=== PATIENT | male | born 1950 | race Caucasian/White ===

== ENCOUNTER 2016-11-02 11:51 | Emergency (ER) | payer MEDICARE ==
[2016-05-14 17:58] VITALS: BMI 23.2
[~2016-11-02 11:51] MED LIST: ASPIRIN325 MG PO; COREG 3.1253.125 MG PO; CRESTOR40 MG PO; LISINOPRIL10 MG PO; LOPRESSOR25 MG PO; NICODERM C1 PATCH .1 TRANSDERM; OMEGA 3 FISH OI1 CAP PO; PLAVIX75 MG PO
[2016-11-02 12:57] LABS: BASOPHILS 0.1 % (0.0-2.0); EOSINOPHILS 0.9 % (0-7); HEMATOCRIT 45.1 % (42.0-54.0); HEMOGLOBIN 15.5 g/dL (13.5-17.5); IMMATURE GRANULOCYTES 0.4 % (0-5); LYMPHOCYTES 15.4 % (15-50); MCH 33.6 pg (26.0-34.0); MCHC 34.4 g/dL (31.0-37.0); MCV 97.8 fL (80.0-100.0); MEAN PLATELET VOLUME 9.1 fL (7.4-10.4); MONOCYTES 9.4 % (2-11); NEUTROPHILS 73.8 % (40-80); RBC 4.61 10x6/uL (4.20-6.10); RDW 12.9 % (11.5-14.5); WBC 13.9 10x3/uL (4.8-10.8)
[2016-11-02 13:02] LABS: PLATELET COUNT 204 10x3/uL (130-400)
[2016-11-02 13:15] LABS: ALBUMIN 3.4 g/dL (3.4-5.0); ALKALINE PHOSPHATASE 94 U/L (46-116); ALT (SGPT) 19 U/L (10-68); BILIRUBIN - TOTAL 0.75 mg/dL (0.2-1.3); CALC OSMOLALITY 273 mosm/kg (275-300); CARBON DIOXIDE 29.9 mmol/L (21.0-32.0); CHLORIDE - SERUM 103 mmol/L (98-107); CREATININE - SERUM 0.8 mg/dL (0.6-1.3); GLUCOSE 76 mg/dL (74-106); POTASSIUM - SERUM 4.5 mmol/L (3.5-5.1); SODIUM 138 mmol/L (136-145); UREA NITROGEN 10 mg/dL (7-18); eGFR NON AFRICAN AMERICAN > 90 mL/min (90-120)
[2016-11-02 13:20] LABS: CALCIUM 8.6 mg/dL (8.5-10.1)
== END 2016-11-02 16:40 | disposition home or self-care (01) ==
LOC: D.ER 11:51
PROVIDERS: Emergency Medicine
DX: J44.1 Chronic obstructive pulmonary disease with (acute) exacerbation (principal); J20.9 Acute bronchitis, unspecified; Z86.73 Personal history of transient ischemic attack (TIA), and cerebral infarction without residual deficits; F17.200 Nicotine dependence, unspecified, uncomplicated

== ENCOUNTER 2017-03-24 07:04 | Outpatient (CLI) | payer MEDICARE ==
[~2017-03-24] VITALS: Ht 177.8 cm; Wt 80.0 kg
--- NOTE | ~2017-03-24 | OP ---
PATIENT NAME: PIA JACKSON MEDICAL RECORD: [id number] :46 LOCATION:D.CAT ADMISSION DATE: SURGEON: MARK KENNEY M.D. DATE OF OPERATION: 03/24/2017 REFERRING PHYSICIAN: Mega Olmos MD. PROCEDURES PERFORMED: 1. RECOVERY ROOM RN and stenting to the right common iliac artery. 2. RECOVERY ROOM RN and stenting to the left common iliac artery. INDICATION: A 66-year-old gentleman who presents with lifestyle limiting claudication. 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 EQUIPMENT USED: A 7-Citizen [place] Brite Tip sheath, 0.035 guidewire, 8 mm x 29 mm Lesli stent, 8 mm x 29 mm Lesli stent. DESCRIPTION OF INTERVENTION: A 7-[place] sheath was inserted in retrograde fashion in the right common femoral artery. Next, a 7-[place] sheath was placed in the left common femoral artery. A UF catheter was advanced over the wire to the bifurcation. Injections then revealed 80% to 90% bilateral iliac stenosis at the origin. At this point, 7000 units of heparin was infused. A 7-[place]izen [place] Brite Tip sheath was then advanced to the junction of the right common iliac and external iliac artery. Next, a 7-[place] Brite Tip sheath was advanced to the junction of the left common iliac artery and left external iliac artery. At this point, an 8 mm x 29 mm Lesli stent was placed at the origin of the right common iliac artery. Next, an 8 mm x 29 mm Lesli stent was placed at the origin of left common iliac artery. Both stents were then simultaneously deployed at 10 atmospheres. Injection revealed both stents to be widely patent with 0% residual stenosis. There is no compromise of the bifurcation. At that point, both groins were closed with ExoSeal. IMPRESSION: Successful RECOVERY ROOM RN stenting to the right and left common iliac artery with 0% residual stenosis. TRANSINT:[id number] Voice Confirmation ID: [id number] DOCUMENT ID: [id number] MARK KENNEY M.D. CC: [id number] DICTATION DATE: 03/24/17 1012 PSYCHOLOGY PHYSICIAN: 03/24/172023 DEP CLI 03/24/17 [id number] [place] [address]
--- NOTE | ~2017-03-24 | HEMODYNAMI ---
PATIENT:PIA JACKSON MEDICAL RECORD: [id number] : 46 LOCATION:D.CAT ADMISSION DATE: 03/24/17 Generatedon:03/24/201710:18 Patient name: PIA JACKSON Patient #: [id number] SSN: [id number] : 1950 Date of study: 03/24/2017 Page: Of Hemodynamic Procedure Report Patient Data Patient Demographics Procedure consent was obtained First Name: PIA Gender: Male Last Name: MANUEL : 1950 Middle Initial: L Age: 66 year(s) Patient #: [id number] Race: SSN: [id number] Additional ID: [id number] Contact details [address]: [address] [place] [address] [place] State: [place] City: [place] Zip code: [address] Past Medical History Allergies: No known allergies Admission Admission Data Admission Date: 03/24/2017 Admission Time: 7:04 Lab Results Lab Result Date: 03/24/2017 Lab Result Time: 0:00 Biochemistry Name Units Result Min Max BUN mg/dl 20 --(----)*- 7 18 Creatinine mg/dl 1 --(--*-)-- 0.6 1.3 CBC Name Units Result Min Max Hemoglobin g/dl 15.9 --(--*-)-- 13.5 17.5 Procedure Procedure Types Cath Procedure Miscellaneous Procedures Moderate Sedation up to 15 minutes Peripheral vascular Intervention Angioplasty Angioplasty Iliac Initial Stent Stent-Arterial Inititial Procedure Description Procedure Date Procedure Date: 03/24/2017 Procedure Start Time: 9:26 Procedure End Time: 10:17 Procedure Staff Name Function Aneudy Fung MD Performing Physician Michelle Ricks RT Scrub Malik Harrison RN Nurse Veronica Gutierrez RN Nurse Leslee Garcia RT Monitor Miguel Herrera RN Nurse Procedure Data Cath Procedure Fluoroscopy Diagnostic fluoroscopy Total fluoroscopy Time: 5.4 time: 5.4 min min Contrast Material Contrast Material Type Amount (ml) Isovue 300 52 Entry Location Entry Primary Successful Side Size (Fr) Upsize 1 Upsize Entry Closu re Successful Closure Location (Fr) 2 (Fr) Remarks Jac e Remarks Femoral Right 6 Fr Short 6 Fr Exose al artery Mid-Length Femoral Left 6 Fr 6 Fr Short Exose al artery Mid-Length Estimated blood loss: 10 ml Diagnostic catheters Device Type Used For End Catheter Placement Cordis Tempo 5Fr UF Procedure catheter Procedure Complications No complications Procedure Medications Medication Administration Route Dosage Oxygen NC 2 l/min Lidocaine 2% added to field 20 Heparin Flush Bag added to field 2 bags (1000units/500ml NS) 0.9% NaCl I.V. 100 ml/hr Fentanyl I.V. 50 mcg Versed I.V. 1 mg Heparin Bolus I.V. 7000 units Versed I.V. 0.5 mg Fentanyl I.V. 25 mcg 0.9% NaCl I.V. bolus 500 ml Plavix P.O. 75 mg Hemodynamics Rest HGB: 15.9 (g/dl) Heart Rate: 93 (bpm) Snapshots Pre Cath Intra NCS Post Cath Vital Signs Time Heart Resp SPO2 NIBP (mmHg) Rhythm Pain Sedation Rate (ipm) (%) Status Level (bpm) 9:13:11 70 13 98 125/80(106) NSR 0 (11) 10(A) , No pain 9:17:19 76 15 100 120/73(102) NSR 0 (11) 10(A) , No pain 9:21:24 74 15 99 113/68(93) NSR 0 (11) 10(A) , No pain 9:25:30 69 14 99 101/62(83) NSR 0 (11) 9(A) , No pain 9:29:32 67 13 99 93/63(76) NSR 0 (11) 9(A) , No pain 9:33:34 64 12 99 84/55(67) NSR 0 (11) 9(A) , No pain 9:37:31 63 15 98 87/56(69) NSR 0 (11) 9(A) , No pain 9:41:31 65 14 98 82/55(70) NSR 0 (11) 9(A) , No pain 9:45:29 62 12 98 83/55(70) NSR 0 (11) 9(A) , No pain 9:49:28 66 14 98 72/46(55) NSR 0 (11) 9(A) , No pain 9:53:26 62 12 98 72/43(57) NSR 0 (11) 9(A) , No pain 9:57:23 65 12 98 77/43(56) NSR 0 (11) 9(A) , No pain 10:01:19 60 13 98 78/53(60) NSR 0 (11) 9(A) , No pain 10:05:16 60 12 98 80/48(64) NSR 0 (11) 10(A) , No pain 10:09:12 63 12 99 81/57(68) NSR 0 (11) 10(A) , No pain 10:13:10 61 12 99 80/54(65) NSR 0 (11) 10(A) , No pain 10:17:19 No Cuff NSR 0 (11) 10(A) , No pain Medications Time Medication Route Dose Verified Delivered Reason Notes Effectiveness by by 9:15:12 Oxygen NC 2 Veronica Veronica used for l/min Matt Matt procurement manager RN 9:15:26 Lidocaine 2% added 20ml Veronica Veronica used for to vial Matt Matt procedure field RN RN 9:15:40 Heparin Flush added 2 Veronica Veronica used for Bag to bags Matt Matt procedure (1000units/500ml field RN RN NS) 9:15:55 0.9% NaCl I.V. 100 Veronica Veronica used for ml/hr Matt Matt procurement manager RN 9:20:41 Fentanyl I.V. 50 Veronica Veronica for sedation mcg Matt Matt RN RN 9:20:49 Versed I.V. 1 mg Veronica Veronica for sedation Matt Matt RN RN 9:30:14 Versed I.V. 0.5 Veronica Veronica for sedation mg Matt Matt RN RN 9:30:21 Fentanyl I.V. 25 Veronica Veronica for sedation mcg Matt Matt RN RN 9:35:16 0.9% NaCl I.V. 500 Veronica Veronica Per physician bolus ml Matt Matt RN RN 9:46:43 Heparin Bolus I.V. 7000 Aneudy Veronica for verif ied units Marcos Gutierrez anticoagulation with dr. BIANCA fung 10:05:43 Plavix P.O. 75 mg Veronica Martin Per physician Matt Gutierrez RN certified anesthesiologist assistant Log Time Note 9:05:04 Diagnostic Cath Status : Elective 9:05:34 Miguel Herrera RN sent for patient. Start room use. 9:05:35 Time tracking: Regular hours 9:05:38 Plan of Care:Hemodynamics will remain stable., Cardiac rhythm will remain stable., Comfort level will be maintained., Respiratory function will remain adequate., Patient/ family verbilizes understanding of procedure., Procedure tolerated without complication., Recovers from procedure without complications.. 9:07:04 Patient received from Med II to CCL 1 Alert and oriented. Tansferred to table in Supine position. 9:07:07 Warm blankets applied, and tristin hugger turned on for patient comfort. 9:07:07 Correct patient and procedure confirmed by team. 9:07:09 Signed procedure consent form obtained from patient. 9:07:22 H&P Date Dictated: 03/10/2017 Within 30 days and on chart., H&P Addendum completed by physician on day of procedure. (MUST COMPLETE FOR ALL OUTPATIENTS). 9:07:25 Pre-procedure instructions explained to patient. 9:07:27 Family in waiting room. 9:07:29 Patient NPO since Midnight. 9:07:47 Patient allergic to No known allergies 9:07:51 Is the patient allergic to Iodine/contrast media? No. 9:08:05 Is patient on blood thinner?Yes 9:08:08 ACC The patient was administered the following blood thiners within the last 24 hours: ACCPlavix 9:08:41 Patient diabetic? No. 9:09:11 Procedure type changed to Cath procedure, Miscellaneous Procedures, Moderate Sedation up to 15 minutes, Peripheral vascular Intervention, Angioplasty, Angioplasty Iliac Initial, Stent, Stent-Arterial Inititial 9:10:09 Snore? Yes 9:10:11 Sleep apnea? No 9:10:17 Dentures? No ? 9:10:23 Patient pain scale 0/10 ?. 9:10:36 IV patent on arrival in left forearm with 0.9% NaCl at KVO. 9:12:09 Vital chart was started 9:13:32 Lab Result : Creatinine 1 mg/dl ::32 Lab Result : BUN 20 mg/dl ::32 Lab Result : Hemoglobin 15.9 g/dl 9::37 Lab results completed and on chart. 9::41 Bilateral groins area was prepped with chlora-prep and draped in sterile fashion 9::42 Alarms reviewed by R. N. 9::43 Sharps counted by scrub and verified by R.N. 9::58 Physician paged 9:15:12 Oxygen 2 l/min NC was administered by Veronica Gutierrez RN; used for procedure; 9:15:19 Physician arrived 9:15:26 Lidocaine 2% 20ml vial added to field was administered by Veronica Gutierrez RN; used for procedure; 9:15:30 ECG and BP/O2 sat monitors applied to patient. ::32 Baseline sample Acquired. 9:15:40 Heparin Flush Bag (1000units/500ml NS) 2 bags added to field was administered by Veronica Gutierrez RN; used for procedure; 9:15:55 0.9% NaCl 100 ml/hr I.V. was administered by Veronica Gutierrez RN; used for procedure; 9:15:59 Rhythm: sinus rhythm 9:16:01 Full Disclosure recording started ::32 --------ALL STOP TIME OUT------ 9:19:33 Final Timeout: patient, procedure, and site verified with staff and physician. All members of the team are in agreement. 9:19:53 Bilateral groins site verified by team. 9:19:57 Physical assessment completed. ASA score P 2 - A patient with mild systemic disease as per Aneudy Fung MD. 9:20:02 Sedation plan: IV Moderate Sedation Versed, Fentanyl 9::41 Fentanyl 50 mcg I.V. was administered by Veronica Gutierrez RN; for sedation; 9::49 Versed 1 mg I.V. was administered by Veronica Gutierrez RN; for sedation; 9:24:27 Zero performed for pressure channel P1 9:26:11 Use device set Femoral PCI 9:26:18 Procedure started. 9:26:25 Local anesthetic to right femoral artery with Lidocaine 2% by Aneudy Fung MD.INITIAL ACCESS ONLY 9:28:23 Acist Syringe opened to sterile field. 9:28:24 Acist Hand Control opened to sterile field. 9:28:25 Bag Decanter opened to sterile field. 9:28:25 Medline Cath Pack opened to sterile field. 9:28:25 Terumo 6Fr [place] Sheath opened to sterile field. 9:28:26 St Abdelrahman 260cm J .035 wire opened to sterile field. 9:28:27 Merit BasixCompak Inflation Kit opened to sterile field. 9:28:29 Acist Manifold opened to sterile field. 9:28:30 Tegaderm 4 x 4 opened to sterile field. 9:30:14 Versed 0.5 mg I.V. was administered by Veronica Gutierrez RN; for sedation; 9:30:21 Fentanyl 25 mcg I.V. was administered by Veronica Gutierrez RN; for sedation; 9:30:32 A 6 Fr Short sheath was inserted into the Right Femoral artery 9:32:13 A Flight Steward Tempo 5Fr UF catheter was advanced over the wire and used for Procedure. 9:35:16 0.9% NaCl 500 ml I.V. bolus was administered by Veronica Gutierrez RN; Per physician; 9:39:00 Left leg runoff performed. 9:41:35 Merit BasixCompak Inflation Kit opened to sterile field. 9:41:37 Cordis 7 Fr 23cm Brite Tip Sheath opened to sterile field. 9:41:37 St Abdelrahman 260cm J .035 wire opened to sterile field. 9:42:52 Catheter removed. 9:43:23 Sheath upsized to a 6 Fr Mid-Length. 9:43:59 Local anesthetic to left femerol artery with Lidocaine 2% by Aneudy Fung MD.ADDITIONAL ACCESS 9:45:35 A 6 Fr Mid-Length sheath was inserted into the Left Femoral artery 9:46:43 Heparin Bolus 7000 units I.V. was administered by Veronica Gutierrez RN; for anticoagulation; verified with dr. fung 9:49:04 UF inserted into the Right Femoral. Angio performed. 9:50:31 Catheter removed. 9:56:57 Inflation Number: 1 A Cordis Lesli 8 x 29 x 135 stent was prepped and advanced across the Ostial Common Iliac, Left. The stent was deployed at 10 OSMAR for 0:20 (min:sec). 9:56:58 Inflation Number: 1 A Cordis Lesli 8 x 29 x 135 stent was prepped and advanced across the Ostial Common Iliac, Right. The stent was deployed at 10 OSMAR for 0:10 (min:sec). 9:57:13 Balloon removed over the wire. 9:57:16 Balloon removed over the wire. 9:59:42 Cordis 7Fr Exoseal opened to sterile field. 9:59:43 Cordis 7Fr Exoseal opened to sterile field. 10:00:20 Terumo 7Fr [place] Sheath opened to sterile field. 10:00:51 Sheath upsized to a 6 Fr Short. 10:01:31 Sheath removed intact; hemostasis achieved with Exoseal to the Left Femoral artery. 10:01:38 Sheath removed intact; hemostasis achieved with Exoseal to the Right Femoral artery. 10:01:42 Procedure ended.(Physican Out) 10:05:43 Plavix 75 mg P.O. was administered by Veronica Gutierrez RN; Per physician; 10:10:32 Fluoroscopy time 05.40 minutes. 10:10:44 Contrast amount:Isovue 300 52ml. 10:10:46 Sharps counted by scrub and verified by R.N. 10:10:53 Insertion/operative site no bleeding no hematoma. 10:10:58 Post-op/insertion site Right Femoral artery dressed using a 4 x 4 and Tegaderm. 10:11:02 Post-op/insertion site Left Femoral artery dressed using a 4 x 4 and Tegaderm. 10:12:04 Post right femoral artery:stable 10:12:10 Post left femerol artery:stable 10:12:14 Post Procedure Pulses reassessed and unchanged 10:12:20 Post-procedure physical assessment completed. ASA score P 2 - A patient with mild systemic disease as per Aneudy Fung MD. 10:12:24 Post procedure rhythm: unchanged. 10:12:28 Estimated blood loss: 10 ml 10:12:30 Post procedure instruction explained to patient.Patient verbalizes understanding. 10:15:02 Procedure and supply charges have been captured, reviewed, submitted and are correct. 10:17:23 Procedure Complication : No complications 10:17:27 Vital chart was stopped 10:17:28 See physician's report for complete and final results. 10:17:32 Patient transfered to Pre/Post Procedure Room with Stretcher. 10:17:36 Procedure ended. 10:17:36 Full Disclosure recording stopped 10:17:39 End room use (Document Last) 10:17:53 ACC-PCI Only Patient was given prescriptions, or instructed by Aneudy Fung MD to start/continue the following medications upon discharge: Plavix Intervention Summary Intervention Notes Time ActionType Lesion and Equipment Action# Pressure Duration Attributes Used 9:56:[address] Place stent Ostial Cordis 1 10 00:20 Common Lesli 8 Iliac, Left x 29 x 135 stent 9:56:58 Place stent Ostial Cordis 1 10 00:10 Common Lesli 8 Iliac, x 29 x Right 135 stent Device Usage Item Name Manufacture Quantity Catalog Hospital Part Current Minimal L ot# / Number Charge Number Stock Stock Serial# Code Acist Acist 1 [id number] [id number] 20 Syringe [employer] Inc Acist Hand Acist 1 66617 858476 800319 726832 5 Control [employer] Inc Bag Microtek 1 2002S 186251 52951 901740 5 Decanter [employer] Inc. Medline Cardinal 1 [id number] 043177 66287 083500 5 Cath Pack Health Terumo 6Fr Terumo 1 [id number] 579095 662753 470385 [address] Abdelrahman 2 004568 844800 085821 597194 30 260cm J .035 wire Merit Merit 2 [id number] 645084 534444 15 [employer] Medical Inflation Kit Acist Acist 1 68276 104265 104511 568730 5 Manifold Medical [employer] Inc Tegaderm 4 3M 1 1626W 673765 838948 191346 5 x 4 Cordis Cardinal 1 [id number] 407884 174184 454961 10 Tempo 5Fr Health UF catheter Cordis 7 Fr Cardinal 1 [id number] 115158 [id number] 0 23cm Brite Health Tip Sheath Cordis Cardinal 2 [id number] 675532 467726 5 1 [id number] Lesli 8 x Health 1 [id number] 29 x 135 stent Cordis 7Fr Cardinal 2 EX700 113327 719081 306093 5 Exoseal Health Terumo 7Fr Terumo 1 [id number] 539959 447663 190805 5 [place] Sheath Signature Audit Reyno Stage Time Signature Unsigned Intra-Procedure 03/24/2017 Leslee Garcia 10:18:12 AM RT(R) Signatures Monitor : Leslee Garcia Signature : RT Date : Time : [id number] [place] [address]
[2017-03-24] MEDS ORDERED: LIPITOR40 MG PO (07:28)
[2017-03-24] MEDS ORDERED: NITROSTAT0.4 MG SL (07:29)
[2017-03-24] MEDS ORDERED: ZETIA10 MG PO (07:29)
[2017-03-24] MEDS ORDERED: LISINOPRIL10 MG PO (07:29)
[2017-03-24 07:33] VITALS: BP 111/64; Ht 177.8 cm; Wt 80.0 kg
[2017-03-24 07:38] LABS: BASOPHILS 0.2 % (0-2); EOSINOPHILS 2.9 % (0-7); HEMATOCRIT 45.8 % (42.0-54.0); HEMOGLOBIN 15.9 g/dL (13.5-17.5); IMMATURE GRANULOCYTES 0.2 % (0-5); LYMPHOCYTES 25.1 % (15-50); MCH 33.5 pg (26.0-34.0); MCHC 34.7 g/dL (31.0-37.0); MCV 96.6 fL (80.0-100.0); MEAN PLATELET VOLUME 9.4 fL (7.4-10.4); MONOCYTES 7.9 % (2-11); NEUTROPHILS 63.7 % (40-80); RBC 4.74 10x6/uL (4.20-6.10); RDW 13.3 % (11.5-14.5); WBC 8.7 10x3/uL (4.8-10.8)
[2017-03-24 07:44] LABS: PLATELET COUNT 158 10x3/uL (130-400)
[2017-03-24 08:05] LABS: CALC OSMOLALITY 282 mosm/kg (275-300); CALCIUM 9.4 mg/dL (8.5-10.1); CHLORIDE - SERUM 107 mmol/L (98-107); SODIUM 140 mmol/L (136-145); UREA NITROGEN 20 mg/dL (7-18); eGFR NON AFRICAN AMERICAN 79 mL/min (90-120)
[2017-03-24 08:08] LABS: GLUCOSE 120 mg/dL (74-106)
--- NOTE | 2017-03-24 10:34 | NUR ---
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 PT IS VERY DROWSY, DENIES ANY C/O. PT HAS BILAT GROIN DRESSINGS WHICH ARE CDI, NO BLEEDING OR HEMATOMA NOTED. PEDAL PULSES PALPABLE, CAP REFILL IS BRISK, FEET WARM TO TOUCH. VSS. AT BEDSIDE. WILL CONTINUE TO MONITOR.
--- NOTE | 2017-03-24 10:42 | NUR ---
1040 PT RESTING WITH EYES CLOSED. DRESSINGS TO BILAT GROIN CDI, NO BLEEDING OR HEMATOMA NOTED. PEDAL PULSES PALPABLE. CAP REFILL IS BRISK. AT BEDSIDE, VSS, WILL CONTINUE TO MONITOR.
--- NOTE | 2017-03-24 11:41 | NUR ---
1100 PT RESTING WITH EYES CLOSED, DENIES ANY C/O. BILAT GROIN DRESSINGS CDI, AREAS SOFT AND NONTENDER. PEDAL PULSES PALPABLE. FEET WARM. AT BEDSIDE, CALL LIGHT IN REACH.
--- NOTE | 2017-03-24 11:55 | NUR ---
1145 PT NU PO FLUIDS, DENIES ANY C/O. SLEEPING OFF AND ON. AT BEDSIDE, CALL LIGHT IN REACH. DRESSINGS REMAIN CDI TO BILAT GROIN AREAS. CAP REFILL IS BRISK, PEDAL PULSES PALPABLE.
--- NOTE | 2017-03-24 12:52 | NUR ---
1230 SANDWICH TRAY SERVED. PT DENIES ANY C/O. DRESSINGS REMAIN CDI, GROIN AREAS SOFT AND NONTENDER. PEDAL PULSES PALPABLE. AT BEDSIDE. CALL LIGHT IN REACH.
--- NOTE | 2017-03-24 13:14 | NUR ---
1310 PT DENIES ANY C/O. NU SANDWICH WITH NO NAUSEA. DRESSINGS TO BILAT GROINS CDI, NO BLEEDING OR HEMATOMA NOTED. PEDAL PULSES PALPABLE.
--- NOTE | 2017-03-24 15:40 | NUR ---
1400 PT DENIES ANY C/O. RESTING WITH EYES CLOSED. DRESSINGS TO BILAT GROIN AREAS ARE CDI, NO BLEEDING OR HEMATOMA NOTED. PEDAL PULSES PALPABLE, FEET WARM, PT DENIES ANY N/V DEFICIT. AT BEDSIDE.
== END 2017-03-24 15:40 | disposition home or self-care (01) ==
LOC: D.CATH 07:04
PROVIDERS: Internal Medicine Cardiovascular Disease
DX: I70.213 Atherosclerosis of native arteries of extremities with intermittent claudication, bilateral legs (principal); Z01.812 Encounter for preprocedural laboratory examination

== ENCOUNTER 2017-06-03 18:51 | Observation (INO) | payer MEDICARE ==
[~2017-06-03] VITALS: Ht 177.8 cm; Wt 77.3 kg
[~2017-06-03 18:51] MED LIST changes: +LIPITOR40 MG PO; +NITROSTAT0.4 MG SL; +ZETIA10 MG PO
[2017-06-03 19:30] LABS: BASOPHILS 0.4 % (0-2); EOSINOPHILS 1.6 % (0-7); HEMATOCRIT 44.2 % (42.0-54.0); HEMOGLOBIN 15.6 g/dL (13.5-17.5); IMMATURE GRANULOCYTES 0.4 % (0-5); LYMPHOCYTES 25.4 % (15-50); MCH 33.8 pg (26.0-34.0); MCHC 35.3 g/dL (31.0-37.0); MCV 95.9 fL (80.0-100.0); MEAN PLATELET VOLUME 9.3 fL (7.4-10.4); MONOCYTES 7.9 % (2-11); NEUTROPHILS 64.3 % (40-80); PLATELET COUNT 173 10x3/uL (130-400); RBC 4.61 10x6/uL (4.20-6.10); RDW 12.9 % (11.5-14.5); WBC 9.7 10x3/uL (4.8-10.8)
[2017-06-03 19:38] LABS: APPEARANCE CLEAR (CLEAR); BILIRUBIN NEGATIVE (NEGATIVE); COLOR YELLOW (YELLOW); GLUCOSE NEGATIVE (NEGATIVE); KETONE NEGATIVE (NEGATIVE); LEUKOCYTE ESTERASE NEGATIVE (NEGATIVE); NITRITE NEGATIVE (NEGATIVE); PROTEIN NEGATIVE (NEGATIVE); UROBILINOGEN NORMAL (NORMAL)
[2017-06-03 19:47] LABS: ALBUMIN 3.5 g/dL (3.4-5.0); ANION GAP 10.2 mmol/L (8-16); BILIRUBIN - TOTAL 0.36 mg/dL (0.2-1.3); CALCIUM 8.7 mg/dL (8.5-10.1); CARBON DIOXIDE 26.8 mmol/L (21.0-32.0); CREATININE - SERUM 1.1 mg/dL (0.6-1.3); PROTEIN - SERUM 6.5 g/dL (6.4-8.2)
[2017-06-03 20:06] LABS: CREATINE KINASE 75 UL (21-232); TROPONIN-I < 0.017 ng/mL (0.000-0.060)
[2017-06-04] VITALS (7 sets, daily range): BP systolic 101–130; BP diastolic 53–74; Ht 177.8 cm; Wt 77.3 kg
--- NOTE | 2017-06-04 01:25 | NUR ---
PT RECEIVED VIA WHEELCHAIR AWAKE, ALERT, ORIENTED, AT SIDE. PT STATES HE HAS GENERALIZED WEAKNESS, DENIES CHEST PAIN AT THIS TIME, OR ANY OTHER NEEDS. TELEMETRY PLACED PER ORDER, PT RESTING COMFORTABLY, DENIES ANY NEEDS. CONTINUE TO MONITOR CLOSELY. BED LOW, CALL LIGHT IN REACH, SIDE RAILS X 2, HOB 30 DEGREES.
--- NOTE | 2017-06-04 04:35 | NUR ---
PT AND RESTING COMFORTABLY IN PTS BED, EASILY ROUSABLE TO VERBAL STIMULI. CONTINUE TO MONITOR CLOSELY. BED LOW, CALL LIGHT IN REACH, SIDE RAILS X 2, HOB 20 DEGREES.
--- NOTE | 2017-06-04 07:15 | NUR ---
RECEIVED REPORT. ASSUMED CARE OF PATIENT. CALL LIGHT WITHIN REACH. PATIENT WITH FEMALE VISITOR AT BEDSIDE, SPOUSE. PATIENT WITH EYES OPEN, RESTING IN BED. DENIES NEEDS AT THIS TIME. RESP EVEN AND UNLABORED. TELEMETRY PATENT. NO DISTRESS.
[2017-06-04 13:23] LABS: CKMB 0.9 U/L (0.0-3.6); CREATINE KINASE 72 UL (21-232); TROPONIN-I < 0.017 ng/mL (0.000-0.060)
--- NOTE | 2017-06-04 14:20 | NUR ---
1400 EKG #1 COMPLETED AT THIS TIME.
--- NOTE | 2017-06-04 17:22 | NUR ---
RESTING IN BED. AT BEDSIDE. CALL LIGHT WITHIN REACH. DENIES NEEDS. NO DISTRESS.
[2017-06-04 18:33] LABS: CKMB 1.1 U/L (0.0-3.6); CREATINE KINASE 67 UL (21-232); TROPONIN-I < 0.017 ng/mL (0.000-0.060)
[2017-06-05] VITALS: BP 115/64
[2017-06-05 01:19] LABS: CKMB 1.2 U/L (0.0-3.6); CREATINE KINASE 61 UL (21-232); TROPONIN-I < 0.017 ng/mL (0.000-0.060)
[2017-06-05 04:00] VITALS: BP 98/66
[2017-06-05 05:23] LABS: BASOPHILS 0.2 % (0-2); EOSINOPHILS 1.2 % (0-7); HEMATOCRIT 44.3 % (42.0-54.0); HEMOGLOBIN 15.6 g/dL (13.5-17.5); IMMATURE GRANULOCYTES 0.3 % (0-5); LYMPHOCYTES 26.9 % (15-50); MCH 33.5 pg (26.0-34.0); MCHC 35.2 g/dL (31.0-37.0); MCV 95.1 fL (80.0-100.0); MEAN PLATELET VOLUME 9.2 fL (7.4-10.4); MONOCYTES 10.2 % (2-11); NEUTROPHILS 61.2 % (40-80); PLATELET COUNT 166 10x3/uL (130-400); RBC 4.66 10x6/uL (4.20-6.10); RDW 12.7 % (11.5-14.5); WBC 9.2 10x3/uL (4.8-10.8)
[2017-06-05 05:40] LABS: CALC OSMOLALITY 278 mosm/kg (275-300); CALCIUM 8.4 mg/dL (8.5-10.1); CARBON DIOXIDE 24.2 mmol/L (21.0-32.0); CHLORIDE - SERUM 106 mmol/L (98-107); GLUCOSE 102 mg/dL (74-106); POTASSIUM - SERUM 4.3 mmol/L (3.5-5.1); SODIUM 140 mmol/L (136-145); UREA NITROGEN 13 mg/dL (7-18); eGFR NON AFRICAN AMERICAN 79 mL/min (90-120)
--- NOTE | 2017-06-05 06:42 | NUR ---
PT HAS AMBULATED AROUND THE UNIT X 2 THIS SHIFT, STATING HE NEEDS TO WALK SOME SO HE DOES NOT GET WEAK. PT DENIES ANY NEEDS, CONTINUE TO MONITOR CLOSELY.
--- NOTE | 2017-06-05 07:10 | NUR ---
RECEIVED REPORT. ASSUMED CARE OF PATIENT. PATIENT UP AMBULATING IN ROOM AFTER RETURNING FROM GETTING COFFEE. RESP EVEN AND UNLABORED. CONTINUES ON TELEMETRY. PATIENTS AT BEDSIDE. DENIES ANY CHEST PAIN OR NEEDS AT THIS TIME. NO DISTRESS.
[2017-06-05 08:00] VITALS: BP 104/68
--- NOTE | 2017-06-05 12:00 | NUR ---
PATIENT AMBULATING THROUGHOUT UNIT. DENIES NEEDS. NO DISTRESS. FAMILY HERE AT PATIENT BEDSIDE.
[2017-06-05 12:04] VITALS: BP 109/64
--- NOTE | 2017-06-05 14:44 | NUR ---
18 GAUGE IV REMOVED FROM LEFT AC. CATHETER TIP INTACT. NO BLEEDING FROM SITE. 2X2 GAUZE APPLIED AND SECURED WITH TAPE. TOELRATED IV REMOVAL WELL. TELEMETRY REMOVED AT THIS TIME. NO DISTRESS.
--- NOTE | 2017-06-05 16:02 | NUR ---
1520 DISCHARGE INSTRUCTIONS PROVIDED TO PATIENT. VERBALIZED UNDERSTANDING OF ALL INSTRUCTIONS PROVIDED. PATIENT HAD NO QUESTIONS FOR THIS HIDE AND SKIN CLASSER. ENCOURAGED PATIENT TO CALL THE UNIT IF HE GETS HOME AND HAS ANY QUESTIONS. 1530 PATIENT REFUSED WHEELCHAIR. PATIENT LEFT UNIT WITH ALL PERSONAL BELONGINGS. PATIENT DISCHARGED TO HOME WITH FAMILY. PATIENT LEFT UNIT IN NO DISTRESS.
--- NOTE | 2017-06-07 08:35 | CN ---
PATIENT NAME:PIA JACKSON MEDICAL RECORD: [id number] : 46 LOCATION:[facility] D.2138 ADMIT DATE: 06/03/17 ACCOUNT: [id number] CONSULTING PHYSICIAN: ROSE CLINTON MD REFERRING PHYSICIAN: HELEN SOLANO M.D. DATE OF CONSULTATION: 06/05/2017 Cardiology Consultation DIAGNOSES: 1. Near syncope. 2. Coronary artery disease. 3. Previous percutaneous transluminal coronary angioplasty stent. 4. Previous coronary bypass graft surgery. 5. Hypertension. 6. Hyperlipidemia. HISTORY OF PRESENT ILLNESS: Mr. Jackson had an episode of dizziness and near syncope yesterday. His states that this lasted approximately 1 minute. He then got jabbing chest pain that lasted only 1 second, each 3 of these. He was brought to the hospital. His troponin is normal. His EKG is with no changes. He has had no further episodes of dizziness, syncope. No significant dysrhythmia since being here. PHYSICAL EXAMINATION: GENERAL APPEARANCE: Well-nourished, well-developed, appears stated age. Level of distress, comfortable. PSYCHIATRIC: Mental status, alert, normal affect. Orientation, oriented to time, place and person. EYES: Lids and conjunctiva, noninjected. No discharge, no pallor. ENT: Lips, teeth, gums, normal dentition. Oropharynx, no cyanosis, no pallor. NECK: Carotid arteries, bilateral normal upstroke, no bruits, no thrills. JUGULAR VEINS: No jugular venous pressure or distention. CERVICAL LYMPH NODES: Nontender, nonenlarged. THYROID: Not enlarged. Nontender. No nodules. LUNGS: Respiratory effort, unlabored. CHEST: Normal curvature. No thoracic deformity. No chest wall tenderness. Percussion, resonant. Auscultation, clear. No wheezes, no rales, no rhonchi. CARDIOVASCULAR: Precordial exam, nondisplaced. No heaves or pericardial thrills. Rate and rhythm, regular. Heart sounds, normal S1, normal S2. No S3, no gallop, no rub. Systolic murmur, not heard. Diastolic murmur, not heard. EXTREMITIES: No cyanosis, no edema. Peripheral pulses, full and equal in all extremities, except as noted. No bruits appreciated. ABDOMEN: Soft, nondistended. Normal aorta. No bruit. Nontender. No masses. Liver, nontender, no hepatomegaly. Spleen, nontender, no splenomegaly. MUSCULOSKELETAL: No joint tenderness. No joint swelling. No erythema. NEUROLOGICAL: Normal gait, normal strength, normal tone. SKIN: Warm and dry. REVIEW OF SYSTEMS: The patient reports easy bruising but reports no swollen glands. The patient reports no fever, no night sweats, no significant weight gain, no significant weight loss. No significant exercise tolerance. The patient reports no dry eyes, no irritation, no vision change. Patient reports no difficulty hearing and no ear pain. Patient reports no frequent nose bleeds or nose and sinus problems. Patient reports on arm pain on exertion. No CONSULT REPORT [id number] PIA JACKSON shortness of breath while lying down. No history of heart murmur. Patient reports no cough, no wheezing or coughing up blood. Patient reports no abdominal pain, no vomiting. Normal appetite. No diarrhea and not vomiting blood. No nausea and no constipation. Patient reports no incontinence. No difficulty urinating. No hematuria. No increased frequency. Patient reports no muscle aches. No weakness, no arthralgias, no back pain. No swelling of the extremities. Patient reports no abnormal mole, no jaundice, no rashes. Reports no loss of consciousness. No weakness and no numbness. No seizures, dizziness, or headaches. The patient reports no depression, no sleep disturbance, feeling safe in a relationship and no alcohol abuse. Patient reports on fatigue. Reports no runny nose or sinus pressure. No itching, no hives, and no frequent sneezing. OVERALL IMPRESSIONS: Chest pain is atypical, musculoskeletal in nature, not sure the etiology of dizziness, but no dysrhythmia here. No hemodynamic compromised. No other cardiac workup treatment is necessary at this time. TRANSINT:[id number] Voice Confirmation ID: [id number] DOCUMENT ID: [id number] ROSE CLINTON MD at 0835 CC: [id number] DICTATION DATE: 06/05/17 1211 INSPECTOR HAIRSPRING TRUING: 06/05/17 1431 DIS IN 06/05/17 [id number] [place] [address]
== END 2017-06-05 15:30 | disposition home or self-care (01) ==
LOC: D.ER 18:51 → D.M2 23:15 → OBSVTIME 23:15 → D.M2 06-05 15:30
PROVIDERS: Emergency Medicine; Nurse Practitioner Family; ADMIT Family Medicine
DX: R07.89 Other chest pain (principal); R55 Syncope and collapse; I25.10 Atherosclerotic heart disease of native coronary artery without angina pectoris; Z95.1 Presence of aortocoronary bypass graft; Z95.5 Presence of coronary angioplasty implant and graft; I10 Essential (primary) hypertension; E78.5 Hyperlipidemia, unspecified; F17.203 Nicotine dependence unspecified, with withdrawal; Z86.73 Personal history of transient ischemic attack (TIA), and cerebral infarction without residual deficits

== ENCOUNTER 2017-08-29 21:30 | Observation (INO) | payer MEDICARE ==
--- NOTE | ~2017-08-29 | HEMODYNAMI ---
PATIENT:PIA JACKSON MEDICAL RECORD: [id number] : 46 LOCATION:[facility] D.211 ADMISSION DATE: 08/29/17 Generatedon:08/30/201714:03 Patient name: PIA JACKSON Patient #: [id number] SSN: [id number] : 1950 Date of study: 08/30/2017 Page: Of Hemodynamic Procedure Report Patient Data Patient Demographics Procedure consent was obtained First Name: PIA Gender: Male Last Name: MANUEL : 1950 [facility] Initial: L Age: 67 year(s) Patient #: [id number] Race: SSN: [id number] Additional ID: [id number] Contact details [address]: [address] [place] [address] [place] State: [place] City: [place] Zip code: [address] Past Medical History Allergies: No known allergies Admission Admission Data Admission Date: 08/29/2017 Admission Time: 23:59 Admit Source: Other Room #: 4 Procedure Procedure Types Cath Procedure Diagnostic Procedure [facility] w/Coronaries Miscellaneous Procedures Moderate Sedation up to 15 minutes Procedure Description Procedure Date Procedure Date: 08/30/2017 Procedure Start Time: 13:52 Procedure End Time: 14:03 Procedure Staff Name Function Robin Penny MD Performing Physician Michelle Ricks RT Monitor Hector Severino RT Scrub Fernando Hickman RT Spindle Plumber Chelle Ferrera RN Spindle Plumber Miguel Herrera RN Nurse Procedure Data Cath Procedure Fluoroscopy Diagnostic fluoroscopy Total fluoroscopy Time: 2 time: 2 min min Diagnostic fluoroscopy Total fluoroscopy dose: 426 dose: 426 mGy mGy Contrast Material Contrast Material Type Amount (ml) Isovue 300 86 Entry Location Entry Primary Successful Side Size Upsize Upsize Entry Closure Succes sful Closure Location (Fr) 1 (Fr) 2 (Fr) Remarks Device Remarks Femoral Right 5 Fr Exoseal artery Estimated blood loss: 5 ml Diagnostic catheters Device Type Used For End Catheter Placement Cordis 5Fr JL 4.0 Left Coronary Catheter (MP) Angiography Cordis 5Fr 3DRC Catheter Right Coronary (MP) Angiography Cordis 5Fr 3DRC Catheter SVG Angiography (MP) Cordis 5Fr 3DRC Catheter Internal mammary (MP) arteriography Cordis 5Fr Pigtail LV Angiography Catheter (MP) Procedure Complications No complications Procedure Medications Medication Administration Route Dosage 0.9% NaCl I.V. 100 ml/hr Oxygen NC 2 l/min Lidocaine 2% added to field 20 Heparin Flush Bag added to field 2 bags (1000units/500ml NS) Fentanyl I.V. 50 mcg Versed I.V. 1 mg Plavix P.O. 75 mg Hemodynamics Rest Heart Rate: 66 (bpm) Pressure Samples Time Site Value (mmHg) Purpose Heart Use Rate(bpm) 13:53 LV 120/-6,13 Snapshot 67 13:53 AO 118/55(82) Pullback 67 13:53 LV 116/13,16 Pullback 67 Gradients Valve Time Site 1 Site 2 Mean SEP/DFP Peak To Heart Use (mmHg) (sec/min) Peak Rate (mmHg) (bpm) Aortic 13:53 LV AO 0 16 0 67 116/13,16 118/55(82) Calculations Valve P-P Mean Valve Index Valve Source Name Gradient Area Flow (cm2) Aortic 0 0 0 0 Snapshots Pre Cath Intra NCS Post Cath Vital Signs Time Heart Resp SPO2 etCO2 NIBP (mmHg) Rhythm Pain Sedation Rate (ipm) (%) (mmHg) Status Level (bpm) 13:32:22 67 16 98 137/85(116) NSR 0 (11) 10(A) , No pain 13:37:00 70 15 100 1.5 134/77(111) NSR 0 (11) 10(A) , No pain 13:41:37 68 16 100 0.7 131/79(109) NSR 0 (11) 10(A) , No pain 13:46:15 64 15 99 1.5 116/67(87) NSR 0 (11) 9(A) , No pain 13:50:56 67 14 98 1.5 115/68(95) NSR 0 (11) 10(A) , No pain 13:55:34 68 14 98 2.2 113/70(95) NSR 0 (11) 10(A) , No pain 14:00:13 65 12 99 2.2 120/70(104) NSR 0 (11) 10(A) , No pain Medications Time Medication Route Dose Verified Delivered Reason Notes Effectiveness by by 13:41:03 0.9% NaCl I.V. 100ml/hr Robin Gan used for MonsonJordan Harrison RN procedure 13:41:30 Oxygen NC 2 l/min Robin Corbett used for [facility]. Jordan Ferrera RN procedure 13:41:43 Lidocaine 2% added 20ml Robin Kelly for local to vial [facility] anesthetic field MD MORGAN 13:42:04 Heparin Flush added 2 bags Robin Kelly used for Bag to [facility] procedure (1000units/500ml field MD MORGAN NS) 13:42:16 Fentanyl I.V. 50 mcg Robin Corbett for sedation St. Jordan Ferrera RN, MD 13:42:28 Versed I.V. 1 mg Robin Corbett for sedation [facility]. Jordan Ferrera RN, MD 13:58:47 Plavix P.O. 75 mg Robin Corbett for Monson Iban VALENZUELA antiplatelet therapy Procedure Log Time Note 13:15:31 Fernando Hickman RT(R) (CV) sent for patient. Start room use. 13:21:35 Informed consent obtained and on chart 13:21:38 Admit Source: Other 13:22:18 Diagnostic Cath status Elective 13:22:39 Time tracking: Regular hours 13:22:43 Plan of Care:Hemodynamics will remain stable., Cardiac rhythm will remain stable., Comfort level will be maintained., Respiratory function will remain adequate., Patient/ family verbilizes understanding of procedure., Procedure tolerated without complication., Recovers from procedure without complications.. 13:22:47 Patient received from Med II to CCL 1 Alert and oriented. Tansferred to table in Supine position. 13:22:48 Warm blankets applied, and tristin hugger turned on for patient comfort. 13:22:49 Correct patient and procedure confirmed by team. 13:22:49 ECG and BP/O2 sat monitors applied to patient. 13:31:36 Vital chart was started 13:32:48 Baseline sample Acquired. 13:32:49 Full Disclosure recording started 13:32:53 Rhythm: sinus rhythm 13:33:05 H&P Date Dictated: 08/30/2017 Within 30 days and on chart.. 13:34:18 Pre-procedure instructions explained to patient. 13:34:18 Pre-op teaching completed and patient verbalized understanding. 13:34:20 Family in patients room. 13:34:22 Patient NPO since Midnight. 13:34:34 Patient allergic to No known allergies 13:39:25 Is the patient allergic to Iodine/contrast media? No. 13:39:46 Is patient on blood thinner?No 13:39:49 Patient diabetic? No. 13:39:52 Previous problem with sedation/anesthesia? No ? 13:39:53 Snore? No 13:39:54 Sleep apnea? No 13:39:55 Deviated septum? No 13:39:56 Opens mouth fully? Yes 13:39:56 Sticks out tongue? Yes 13:39:59 Airway obstruction? No ? 13:40:00 Dentures? No ? 13:40:03 Pre procedure: right dorsailis pedis pulse 2+ Normal; easily identifiable; not easily obliterated 13:40:07 Patient pain scale 0/10 ?. 13:40:13 IV patent on arrival in left forearm with 0.9% NaCl at [facility]. 13:40:16 Lab results completed and on chart. 13:40:19 Right groin area was prepped with chlora-prep and draped in sterile fashion 13:40:20 Alarms reviewed by R. N. 13:40:20 Sharps counted by scrub and verified by R.N. 13:40:24 Use device set Femoral Dx 13:40:25 Acist Syringe opened to sterile field. 13:40:26 Bag Decanter opened to sterile field. 13:40:26 Medline Cath Pack opened to sterile field. 13:40:27 Terumo 5Fr [place]er[place] Sheath opened to sterile field. 13:40:27 St Abdelrahman 260cm J .035 wire opened to sterile field. 13:40:28 Acist Hand Control opened to sterile field. 13:40:29 Acist Manifold opened to sterile field. 13:40:29 Diagnostic Infinity 5Fr Multipack catheter opened to sterile field. 13:40:30 Tegaderm 4 x 4 opened to sterile field. 13:41:03 0.9% NaCl 100ml/hr I.V. was administered by Malik Harrison RN; used for procedure; 13:41:21 Final Timeout: patient, procedure, and site verified with staff and physician. All members of the team are in agreement. 13:41:23 Right groin site verified by team. 13:41:27 Physical assessment completed. ASA score P 2 - A patient with mild systemic disease as per Robin Penny MD. 13:41:30 Oxygen 2 l/min NC was administered by Chelle Ferrera RN; used for procedure; 13:41:32 Sedation plan: IV Moderate Sedation Medication:Versed, Fentanyl 13:41:43 Lidocaine 2% 20ml vial added to field was administered by Robin Penny MD; for local anesthetic; 13:42:04 Heparin Flush Bag (1000units/500ml NS) 2 bags added to field was administered by Robin Penny MD; used for procedure; 13:42:16 Fentanyl 50 mcg I.V. was administered by Chelle Ferrera RN; for sedation; 13:42:28 Versed 1 mg I.V. was administered by Chelle Ferrera RN; for sedation; 13:45:20 Local anesthetic to right femoral artery with Lidocaine 2% by Robin Penny MD.INITIAL ACCESS ONLY 13:46:11 A 5 Fr sheath was inserted into the Right Femoral artery 13:48:17 A Cordis 5Fr JL 4.0 Catheter (MP) was advanced over the wire and used for Left Coronary Angiography. 13:48:26 Catheter removed. 13:49:15 A Cordis 5Fr 3DRC Catheter (MP) was advanced over the wire and used for Right Coronary Angiography. 13:49:25 A Cordis 5Fr 3DRC Catheter (MP) was advanced over the wire and used for SVG Angiography.to RCA 13:51:10 A Cordis 5Fr 3DRC Catheter (MP) was advanced over the wire and used for Internal mammary arteriography.to LAD 13:51:12 Catheter removed. 13:51:25 A Cordis 5Fr Pigtail Catheter (MP) was advanced over the wire and used for LV Angiography. 13:52:59 Procedure started. 13:53:05 LV gram done using RUBIO 13:53:07 LV hemodynamics recorded. 13:53:09 Injector settings: Ml/sec: 10, Volume: 20, 13:53:23 Catheter removed. 13:53:33 Sheath removed intact; hemostasis achieved with Exoseal to the Right Femoral artery. 13:54:27 Procedure ended.(Physican Out) 13:54:45 Fluoroscopy time 02.00 minutes. 13:54:48 Fluoroscopy dose: 426 mGy 13:54:48 Flurop Dose total: 426 13:54:51 Contrast amount:Isovue 300 86ml. 13:54:53 Sharps counted by scrub and verified by R.N. 13:54:54 Insertion/operative site no bleeding no hematoma. 13:54:56 Post-op/insertion site Right Femoral artery dressed using a 4 x 4 and Tegaderm. 13:55:00 Post right femoral artery:stable, clean and dry 13:55:01 Post Procedure Pulses reassessed and unchanged 13:55:04 Post-procedure physical assessment completed. ASA score P 2 - A patient with mild systemic disease as per Robin Penny MD. 13:55:07 Post procedure rhythm: unchanged. 13:55:10 Estimated blood loss: 5 ml 13:55:21 Post procedure instruction explained to patient.Patient verbalizes understanding. 13:55:22 Patient needs reinforcement of post procedure teaching. 13:55:31 Procedure type changed to Cath procedure, Diagnostic procedure, LHC, LHC w/Coronaries, Miscellaneous Procedures, Moderate Sedation up to 15 minutes 13:57:04 Procedure Complication : No complications 13:57:33 Cordis 5Fr Exoseal opened to sterile field. 13:57:55 PERCUTANEOUS ENTRY 19GA needle opened to sterile field. 13:58:47 Plavix 75 mg P.O. was administered by Chelle Ferrera RN; for antiplatelet therapy; 13:58:52 Procedure and supply charges have been captured, reviewed, submitted and are correct. 13:58:54 See physician's report for complete and final results. 14:02:18 Vital chart was stopped 14:02:23 Report given to PCU. 14:02:27 Patient transfered to PCU with Bed. 14:03:02 Procedure ended. 14:03:02 Full Disclosure recording stopped 14:03:05 End room use (Document Last) Device Usage Item Name Manufacture Quantity Catalog Hospital Part Current Minimal Lot# / Number Charge Number Stock Stock Serial# Code Acist Acist 1 16523 184641 072127 423212 20 Syringe [employer] Bag Decanter Microtek 1 2002S 412833 97449 061344 5 Medical Inc. Medline Cath Cardinal 1 [id number] 808214 79826 764945 5 Pack Health Terumo 5Fr Terumo 1 [id number] 857303 895831 132505 [address] Abdelrahman 1 731038 977696 683343 563041 30 260cm J .035 wire Acist Hand Acist 1 12911 589674 784380 532750 5 Control Medical Systems Inc Acist Acist 1 89002 361444 118122 452593 5 Manifold Medical Systems Inc Diagnostic Cardinal 1 PU3214 369432 28645 901589 30 Infinity 5Fr Health Multipack catheter Tegaderm 4 x 3M 1 1626W 113446 560823 576829 5 4 Cordis 5Fr Cardinal 1 693363 5 JL 4.0 Health Catheter (MP) Cordis 5Fr Cardinal 1 204806 5 3DRC Health Catheter (MP) Cordis 5Fr Cardinal 1 398544 5 Pigtail Health Catheter (MP) Cordis 5Fr Cardinal 1 EX500 814831 545950 448792 10 [facility] 1 S30044 772262 695242 5 ENTRY 19GA needle Signature Audit Chelsea Stage Time Signature Unsigned Intra-Procedure 08/30/2017 Michelle 2:03:36 PM Counts RT(R) Signatures Monitor : Michelle Signature : Counts RT Date : Time : [address] [place] [address]
[2017-08-29 22:18] LABS: BASOPHILS 0.3 % (0-2); EOSINOPHILS 2.4 % (0-7); HEMATOCRIT 41.6 % (42.0-54.0); HEMOGLOBIN 14.3 g/dL (13.5-17.5); IMMATURE GRANULOCYTES 0.3 % (0-5); LYMPHOCYTES 27.6 % (15-50); MCH 33.2 pg (26.0-34.0); MCHC 34.4 g/dL (31.0-37.0); MCV 96.5 fL (80.0-100.0); MEAN PLATELET VOLUME 9.4 fL (7.4-10.4); NEUTROPHILS 61.4 % (40-80); PLATELET COUNT 143 10x3/uL (130-400); RBC 4.31 10x6/uL (4.20-6.10); RDW 12.8 % (11.5-14.5); WBC 7.9 10x3/uL (4.8-10.8)
[2017-08-29 22:38] LABS: ALBUMIN 3.6 g/dL (3.4-5.0); ALKALINE PHOSPHATASE 94 U/L (46-116); ALT (SGPT) 25 U/L (10-68); BILIRUBIN - TOTAL 0.44 mg/dL (0.2-1.3); CALC OSMOLALITY 272 mosm/kg (275-300); CALCIUM 8.6 mg/dL (8.5-10.1); CARBON DIOXIDE 25.8 mmol/L (21.0-32.0); CHLORIDE - SERUM 103 mmol/L (98-107); CREATININE - SERUM 0.9 mg/dL (0.6-1.3); GLUCOSE 96 mg/dL (74-106); POTASSIUM - SERUM 4.1 mmol/L (3.5-5.1); PROTEIN - SERUM 6.6 g/dL (6.4-8.2); SODIUM 137 mmol/L (136-145); UREA NITROGEN 11 mg/dL (7-18); eGFR NON AFRICAN AMERICAN 89 mL/min (90-120)
[2017-08-29 22:45] LABS: CHOL - HDL RATIO 2.7 ratio (2.3-4.9); CHOLESTEROL, TOTAL 69 mg/dL (0-200); CKMB 2.1 U/L (0.0-3.6); CREATINE KINASE 130 UL (21-232); HDL CHOLESTEROL 26 mg/dL (32-96); LDL CHOLESTEROL 9 mg/dL (0-100); LDL-HDL RATIO 0.3 ratio (1.5-3.5); TRIGLYCERIDE 170 mg/dL (30-200)
[2017-08-29 22:48] LABS: TROPONIN-I < 0.017 ng/mL (0.000-0.060)
--- NOTE | 2017-08-30 07:30 | NUR ---
RECEIVED PT IN BED AAOX4 RESP UNLABORED DENIES ANY NEEDS OR DISCOMFORT AT THIS TIME NAD NOTED
[2017-08-30 08:00] VITALS: BP 113/66
[2017-08-30 09:01] LABS: CALC OSMOLALITY 278 mosm/kg (275-300); CALCIUM 8.8 mg/dL (8.5-10.1); CARBON DIOXIDE 23.4 mmol/L (21.0-32.0); CHLORIDE - SERUM 105 mmol/L (98-107); CREATININE - SERUM 0.8 mg/dL (0.6-1.3); GLUCOSE 123 mg/dL (74-106); POTASSIUM - SERUM 3.7 mmol/L (3.5-5.1); SODIUM 139 mmol/L (136-145); UREA NITROGEN 13 mg/dL (7-18); eGFR NON AFRICAN AMERICAN > 90 mL/min (90-120)
[2017-08-30 09:05] LABS: BASOPHILS 0.3 % (0-2); EOSINOPHILS 2.3 % (0-7); HEMATOCRIT 41.7 % (42.0-54.0); HEMOGLOBIN 14.2 g/dL (13.5-17.5); IMMATURE GRANULOCYTES 0.1 % (0-5); LYMPHOCYTES 31.5 % (15-50); MCH 33.1 pg (26.0-34.0); MCHC 34.1 g/dL (31.0-37.0); MCV 97.2 fL (80.0-100.0); MEAN PLATELET VOLUME 10.3 fL (7.4-10.4); MONOCYTES 11.4 % (2-11); NEUTROPHILS 54.4 % (40-80); PLATELET COUNT 156 10x3/uL (130-400); RBC 4.29 10x6/uL (4.20-6.10); WBC 7.1 10x3/uL (4.8-10.8)
[2017-08-30 12:00] VITALS: BP 97/61
--- NOTE | 2017-08-30 13:10 | NUR ---
PT TO SAMPLE SHOE INSPECTOR AND REWORKER VIA BED IN STABLE CONDITION
--- NOTE | 2017-08-30 14:15 | NUR ---
RECEIVED PT BACK FROM MANAGER CONFIGURATION IN STABLE CONDITION VSS PPPX4 RT GROIN SOFT DRSG C/D/I WILL CONTINUE TO MONITOR
[2017-08-30] MEDS ORDERED: BACLOFEN10 MG PO (16:59)
--- NOTE | 2017-08-30 18:05 | NUR ---
REVIEWED DISCHARGE INSTRUCTIONS WITH PT AND STATES UNDERSTANDING COPY GIVEN SALINE LOCK DCD RT HAND WITH IV CATHETER INTACT SITE FREE OF REDNESS OR EDEMA PT DISCHARGED HOME LEFT UNIT VIA W/C IN STABLE CONDITION WITH ALL PERSONAL BELONGINGS
--- NOTE | 2017-08-31 13:00 | CN ---
PATIENT NAME:PIA JACKSON MEDICAL RECORD: [id number] : 46 LOCATION:[facility] D.2114 ADMIT DATE: 08/29/17 ACCOUNT: [id number] CONSULTING PHYSICIAN: BESS LEON MD REFERRING PHYSICIAN: LACIE RAI MD DATE OF CONSULTATION: 08/30/2017 HISTORY OF PRESENT ILLNESS: A 67-year-old gentleman with known history of coronary artery disease, status post coronary artery bypass grafting, underwent revascularization of bilateral iliacs by Dr. Rodríguez. He has been having more exertional angina since then, was set for a nuclear stress testing; however, he had episode of rest pain yesterday relieved with 2 nitroglycerins, certainly an accelerated pattern. We are asked to see him concerning his cardiovascular status. PAST MEDICAL HISTORY: Includes: 1. History of peripheral vascular disease. 2. Coronary artery disease with intervention to both iliacs. 3. Hypertension. 4. Dyslipidemia. 5. Probable obstructive pulmonary disease on exam with long-term smoking history. ALLERGIES: None known. MEDICATIONS: Include Plavix 75 every day, Lipitor 40 every day, carvedilol 3.125 b.i.d., Zetia 10 every day, lisinopril 10 every day, aspirin 325 every day. SOCIAL HISTORY: . He continues to smoke about a pack a day. Easily takes care of all ADLs. Good family support. REVIEW OF SYSTEMS: The patient reports easy bruising but reports no swollen glands. The patient reports no fever, no night sweats, no significant weight gain, no significant weight loss. No significant exercise tolerance. The patient reports no dry eyes, no irritation, no vision change. Patient reports no difficulty hearing and no ear pain. Patient reports no frequent nose bleeds or nose and sinus problems. Patient reports on arm pain on exertion. No shortness of breath while lying down. No history of heart murmur. Patient reports no cough, no wheezing or coughing up blood. Patient reports no abdominal pain, no vomiting. Normal appetite. No diarrhea and not vomiting blood. No nausea and no constipation. Patient reports no incontinence. No difficulty urinating. No hematuria. No increased frequency. Patient reports no muscle aches. No weakness, no arthralgias, no back pain. No swelling of the extremities. Patient reports no abnormal mole, no jaundice, no rashes. Reports no loss of consciousness. No weakness and no numbness. No seizures, dizziness, or headaches. The patient reports no depression, no sleep disturbance, feeling safe in a relationship and no alcohol abuse. Patient reports on fatigue. Reports no runny nose or sinus pressure. No itching, no hives, and no frequent sneezing. PHYSICAL EXAMINATION: GENERAL: Pleasant gentleman in no acute distress. HEENT: Normocephalic, atraumatic. NECK: No bruits are noted. CONSULT REPORT [id number] PIA JACKSON HEART: Regular, II/ systolic ejection murmur. LUNGS: Prolonged expiratory phase, few scattered wheezes. ABDOMEN: Soft, nontender. EXTREMITIES: Pulses 2+. There is no edema. NEUROLOGIC: Grossly intact. DIAGNOSTIC DATA: ECG shows left bundle branch block, which is unchanged. Cardiac enzymes are negative. IMPRESSION: Accelerated angina pattern with rest symptomatology at this point. PLAN: For diagnostic coronary angiography intervention based on above. TRANSINT:[id number] Voice Confirmation ID: [id number] DOCUMENT ID: [id number] BESS LEON MD at 1300 CC: [id number] DICTATION DATE: 08/30/17828 CAP JEWEL PLATE ASSEMBLER: 08/30/17 1253 DIS IN 08/30/17 [facility] [address] [place] [address]
--- NOTE | 2017-08-31 13:00 | OP ---
PATIENT NAME: PIA JACKSON MEDICAL RECORD: [id number] :46 LOCATION:D. D.2114 ADMISSION DATE:08/29/17 SURGEON: BESS LEON MD DATE OF OPERATION: 08/30/2017 PROCEDURE: Left heart catheterization, selective coronary angiography, right femoral artery approach. CATHETERS: A 5-Nicaraguan sheath, 5/4 left and right Alma Delia, 5/4 pig. The procedure was well tolerated. The patient returned to the shirley, sheath removed. ExoSeal device placed. FINDINGS: Left ventriculography in 30-degree RUBIO view: Normal wall motion, normal systolic function. CORONARY ANATOMY. LEFT MAIN: Left main is free of disease. LAD: LAD fills for a short period of time, then is seen filling competitive flow via the PIERRE. CIRCUMFLEX: Circumflex is a large codominant system and this has widely patent stent. No evidence of restenosis. RIGHT CORONARY ARTERY: Totally occluded proximally. BYPASS GRAFTS: 1. PEIRRE to LAD is widely patent throughout its course. It fills the LAD and diagonal system with no evidence of post-anastomotic stenosis. 2. Saphenous vein graft to the right coronary is widely patent throughout its course without evidence of post-anastomotic stenosis. IMPRESSION: Normal left ventricular function, patent stents in the circumflex, patent bypass grafts. TRANSINT:[id number] Voice Confirmation ID: [id number] DOCUMENT ID: [id number] BESS LEON MD at 1300 CC: [id number] DICTATION DATE: 08/30/17 1401 MEDICAL SPECIALIST: 08/30/17 1453 DIS IN 08/30/17 [address] [place] [address]
== END 2017-08-30 18:05 | disposition home or self-care (01) ==
LOC: D.ER 21:30 → D.M2 23:59 → OBSVTIME 23:59 → D.M2 23:59
PROVIDERS: Family Medicine; Internal Medicine Interventional Cardiology; ADMIT Family Medicine
DX: R07.89 Other chest pain (principal); I25.10 Atherosclerotic heart disease of native coronary artery without angina pectoris; Z95.1 Presence of aortocoronary bypass graft; F17.203 Nicotine dependence unspecified, with withdrawal; I73.9 Peripheral vascular disease, unspecified; I10 Essential (primary) hypertension; Z86.73 Personal history of transient ischemic attack (TIA), and cerebral infarction without residual deficits

== ENCOUNTER 2018-01-01 18:13 | Observation (INO) | payer MEDICARE, MEDICAID ==
[~2018-01-01] VITALS: Ht 177.8 cm; Wt 72.2 kg
--- NOTE | ~2018-01-01 | CN ---
PATIENT NAME:PIA JACKSON MEDICAL RECORD: [id number] : 46 LOCATION:[facility].2123 ADMIT DATE: 01/01/18 ACCOUNT: [id number] CONSULTING PHYSICIAN: BESS LEON MD REFERRING PHYSICIAN: RASTA SARMIENTO MD DATE OF CONSULTATION: 01/02/2018 HISTORY OF PRESENT ILLNESS: A 67-year-old gentleman with known history of coronary artery disease, status post angiography, most recently in August with patent grafts, onset of chest pain yesterday, previously had bronchitis. This is a fairly rapid onset, definite pleuritic component, worse with deep inspiration, worse lying flat on his back. No recent increase in anginal type pattern. We are asked to see him concerning his cardiovascular status. PAST MEDICAL HISTORY: Includes: 1. History of hypertension. 2. Dyslipidemia. 3. Coronary artery disease as described above. ALLERGIES: None known. MEDICATIONS: Include Baclofen 10 mg p.o. t.i.d., Plavix 75 every day, atorvastatin 40 every day, carvedilol 3.125 every day, Zetia 10 every day, lisinopril 10 every day, aspirin 81 every day. ALLERGIES: None known. SOCIAL HISTORY: He is a nonsmoker. He is able to care of his ADLs. REVIEW OF SYSTEMS: The patient reports easy bruising but reports no swollen glands. The patient reports no fever, no night sweats, no significant weight gain, no significant weight loss. No significant exercise tolerance. The patient reports no dry eyes, no irritation, no vision change. Patient reports no difficulty hearing and no ear pain. Patient reports no frequent nose bleeds or nose and sinus problems. Patient reports on arm pain on exertion. No shortness of breath while lying down. No history of heart murmur. Patient reports no cough, no wheezing or coughing up blood. Patient reports no abdominal pain, no vomiting. Normal appetite. No diarrhea and not vomiting blood. No nausea and no constipation. Patient reports no incontinence. No difficulty urinating. No hematuria. No increased frequency. Patient reports no muscle aches. No weakness, no arthralgias, no back pain. No swelling of the extremities. Patient reports no abnormal mole, no jaundice, no rashes. Reports no loss of consciousness. No weakness and no numbness. No seizures, dizziness, or headaches. The patient reports no depression, no sleep disturbance, feeling safe in a relationship and no alcohol abuse. Patient reports on fatigue. Reports no runny nose or sinus pressure. No itching, no hives, and no frequent sneezing. PHYSICAL EXAMINATION: GENERAL: Alert gentleman in no acute distress. VITAL SIGNS: Blood pressure 120/66, pulse 90 and regular. HEENT: Normocephalic and atraumatic. NECK: No bruits noted. HEART: Regular. I did not hear a rub. LUNGS: Diminished air excursion with a few expiratory wheezes. CONSULT REPORT [id number] PIA JACKSON ABDOMEN: Soft, nontender. EXTREMITIES: Pulses 2+. There is no edema. DIAGNOSTIC DATA: ECG without acute change. Cardiac enzymes are negative. IMPRESSION: Chest pain. Cardiac enzymes negative so far. ECG without acute change. Given history, we will treat with Toradol and steroids. Otherwise agree with current workup. TRANSINT:[id number] Voice Confirmation ID: [id number] DOCUMENT ID: [id number] BESS LEON MD at 1155 CC: [id number] DICTATION DATE: 01/02/18 0824 TICKET PRINTER AND TAGGER: 01/02/18 1125 DIS IN 01/03/[address] [facility] [address] [place] [address]
[~2018-01-01 18:13] MED LIST changes: +BACLOFEN10 MG PO
[2018-01-01 18:35] LABS: BASOPHILS 0.2 % (0-2); EOSINOPHILS 0.7 % (0-7); HEMATOCRIT 39.7 % (42.0-54.0); HEMOGLOBIN 13.4 g/dL (13.5-17.5); IMMATURE GRANULOCYTES 0.3 % (0-5); LYMPHOCYTES 11.5 % (15-50); MCH 32.5 pg (26.0-34.0); MCHC 33.8 g/dL (31.0-37.0); MCV 96.4 fL (80.0-100.0); MEAN PLATELET VOLUME 8.8 fL (7.4-10.4); MONOCYTES 10.4 % (2-11); NEUTROPHILS 76.9 % (40-80); PLATELET COUNT 153 10x3/uL (130-400); RBC 4.12 10x6/uL (4.20-6.10); RDW 12.9 % (11.5-14.5); WBC 11.4 10x3/uL (4.8-10.8)
[2018-01-01 18:54] LABS: ALBUMIN 3.2 g/dL (3.4-5.0); ALKALINE PHOSPHATASE 86 U/L (46-116); ALT (SGPT) 19 U/L (10-68); BILIRUBIN - TOTAL 0.47 mg/dL (0.2-1.3); CALC OSMOLALITY 276 mosm/kg (275-300); CALCIUM 8.3 mg/dL (8.5-10.1); CHLORIDE - SERUM 105 mmol/L (98-107); GLUCOSE 108 mg/dL (74-106); POTASSIUM - SERUM 4.9 mmol/L (3.5-5.1); PROTEIN - SERUM 6.3 g/dL (6.4-8.2); SODIUM 138 mmol/L (136-145); UREA NITROGEN 12 mg/dL (7-18); eGFR NON AFRICAN AMERICAN 79 mL/min (90-120)
[2018-01-01 19:05] LABS: CHOLESTEROL, TOTAL 74 mg/dL (0-200); CKMB 2.1 U/L (0.0-3.6); CREATINE KINASE 79 UL (21-232); HDL CHOLESTEROL 38 mg/dL (32-96); LDL CHOLESTEROL 22 mg/dL (0-100); LDL-HDL RATIO 0.6 ratio (1.5-3.5); TRIGLYCERIDE 71 mg/dL (30-200)
[2018-01-01 19:07] LABS: TROPONIN-I < 0.017 ng/mL (0.000-0.060)
[2018-01-01 23:51] VITALS: BP 102/58
[2018-01-02 04:00] VITALS: BP 91/55
[2018-01-02 04:48] VITALS: BP 120/66; BMI 24.2
[2018-01-02 08:35] VITALS: BP 98/57
[2018-01-02 11:40] VITALS: BP 122/55
[2018-01-02 14:14] VITALS: Ht 177.8 cm; Wt 72.2 kg
[2018-01-02 15:34] VITALS: BP 100/54
[2018-01-02 19:00] VITALS: BP 110/59
[2018-01-03 04:00] VITALS: BP 106/62
[2018-01-03 05:12] LABS: BASOPHILS 0 % (0-2); EOSINOPHILS 0 % (0-7); HEMATOCRIT 38.6 % (42.0-54.0); HEMOGLOBIN 13.5 g/dL (13.5-17.5); IMMATURE GRANULOCYTES 0.4 % (0-5); LYMPHOCYTES 5.5 % (15-50); MCH 32.7 pg (26.0-34.0); MONOCYTES 5.1 % (2-11); PLATELET COUNT 168 10x3/uL (130-400); RBC 4.13 10x6/uL (4.20-6.10); RDW 12.7 % (11.5-14.5)
[2018-01-03 05:15] LABS: MCV 93.5 fL (80.0-100.0); WBC 19.6 10x3/uL (4.8-10.8)
[2018-01-03 05:25] LABS: CALC OSMOLALITY 277 mosm/kg (275-300); CALCIUM 9.2 mg/dL (8.5-10.1); CARBON DIOXIDE 23.7 mmol/L (21.0-32.0); CHLORIDE - SERUM 104 mmol/L (98-107); GLUCOSE 148 mg/dL (74-106); POTASSIUM - SERUM 4.7 mmol/L (3.5-5.1); SODIUM 137 mmol/L (136-145); UREA NITROGEN 14 mg/dL (7-18); eGFR NON AFRICAN AMERICAN 79 mL/min (90-120)
[2018-01-03 08:27] VITALS: BP 103/53
[2018-01-03 11:46] VITALS: BP 103/55
[2018-01-03] MEDS ORDERED: LEVAQUIN500 MG PO (13:43)
[2018-01-03] MEDS ORDERED: PREDNISONE10 MG PO (13:43)
[2018-01-03] MEDS ORDERED: ZETIA10 MG PO (15:30)
[2018-01-03 15:34] VITALS: BP 124/68
== END 2018-01-03 15:30 | disposition home or self-care (01) ==
LOC: D.ER 18:13 → D.M2 19:26 → OBSVTIME 19:26 → D.M2 01-03 15:30
PROVIDERS: Emergency Medicine; Family Medicine
DX: J40 Bronchitis, not specified as acute or chronic (principal); I25.10 Atherosclerotic heart disease of native coronary artery without angina pectoris; Z95.5 Presence of coronary angioplasty implant and graft; Z95.1 Presence of aortocoronary bypass graft; E78.5 Hyperlipidemia, unspecified; I10 Essential (primary) hypertension; Z86.73 Personal history of transient ischemic attack (TIA), and cerebral infarction without residual deficits; F17.203 Nicotine dependence unspecified, with withdrawal

== ENCOUNTER 2018-01-24 07:51 | Outpatient (CLI) | payer MEDICARE, MEDICAID ==
[~2018-01-24] VITALS: Ht 177.8 cm; Wt 73.2 kg
--- NOTE | ~2018-01-24 | OP ---
PATIENT NAME: PIA JACKSON MEDICAL RECORD: [id number] :46 LOCATION:D.CAT ADMISSION DATE: SURGEON: ROSE CLINTON MD DATE OF OPERATION: 01/24/2018 PROCEDURES: 1. PTCA stent left main. 2. PTCA stent left circumflex. 3. Left heart catheterization. 4. Selective coronary angiography. 5. Left ventriculogram. 6. Vein graft angiography. 7. PIERRE angiography. 8. Aortofemoral runoff. 9. Abdominal aortography. INDICATION: Angina, coronary artery disease, claudication, and peripheral vascular disease. PROCEDURE IN DETAIL: After informed consent was obtained and after a detailed description of risk, benefits as well as alternative therapies, the patient elected to proceed with angiogram and angioplasty. The right femoral area was prepped and draped in normal sterile fashion. The right femoral artery was cannulated via modified Seldinger technique with placement of 6-Dutch sheath. All catheters exchanged through this sheath. FINDINGS: Abdominal aortography was performed. The catheter was pulled down for aortofemoral runoff. Abdominal aortography reveals no significant abdominal aortic disease, no renal artery stenosis. No dissection or aneurysm formation. RIGHT LEG: A. Iliac: The common iliac has previously placed stent. This is widely patent with no significant restenosis. No disease elsewise at the iliacs or other branches. B. Femoral system: The common superficial and deep femoral have moderate irregularities, but no flow-limiting stenosis. C. Popliteal and infrapopliteal vessels are widely patent with good 3-vessel runoff to the foot. LEFT LEG: A. Iliac: The common iliac has previously placed stent. This is widely patent with no significant restenosis. No disease elsewise at the iliacs or other branches. B. Femoral system: The common superficial and deep femoral have moderate irregularities, but no flow-limiting stenosis. C. Popliteal and infrapopliteal vessels are widely patent with good 3-vessel runoff to the foot. Left ventriculogram was performed in standard 30-degree RUBIO view, reveals good cardiac wall motion throughout all segments. Overall ejection fraction estimated at 55%. SELECTIVE CORONARY ANGIOGRAPHY: 1. Left main is 99% stenosed. This has in-stent restenosis. 2. The left circumflex has a previously placed stent. This is as well 99% OPERATIVE REPORT [id number] PIA JACKSON in-stent restenosed. 3. Left anterior descending is totally occluded. 4. PIERRE to the LAD is widely patent. Distal LAD is widely patent. 5. The right coronary artery is totally occluded. 6. Vein graft to the right coronary artery is widely patent. Distal right coronary artery is widely patent throughout. PTCA STENT OF THE LEFT MAIN AND LEFT CIRCUMFLEX: The left main was addressed with a 3.5 x 16 mm Promus and the circumflex itself with a 3.5 x 20 mm Promus. Result was 0% residual stenosis. OVERALL IMPRESSION: Successful percutaneous transluminal coronary angioplasty stent of the left main and left circumflex, both going from 99% initial stenosis to 0% residual stenosis. TRANSINT:[id number] Voice Confirmation ID: [id number] DOCUMENT ID: [id number] ROSE CLINTON MD at 0915 CC: [id number] DICTATION DATE: 01/24/18 1054 FOUNDATION RELATIONS DIRECTOR: 01/24/18 1245 DEP CLI 01/24/18 [address] [place] [address]
--- NOTE | ~2018-01-24 | HEMODYNAMI ---
PATIENT:PIA JACKSON MEDICAL RECORD: [id number] : 46 LOCATION:DRumaCAT ADMISSION DATE: 01/24/18 Generatedon:01/24/201811:02 Patient name: PIA JACKSON Patient #: [id number] SSN: [id number] : 1950 Date of study: 01/24/2018 Page: Of Hemodynamic Procedure Report Patient Data Patient Demographics Procedure consent was obtained First Name: PIA Gender: Male Last Name: MANUEL : 1950 [facility] Initial: L Age: 67 year(s) Patient #: [id number] Race: SSN: [id number] Additional ID: [id number] Contact details [address]: [address] [place] [address] TRAIL State: [place] City: [place] Zip code: [address] Past Medical History Allergies: No known allergies Admission Admission Data Admission Date: 01/24/2018 Admission Time: 7:51 Procedure Procedure Types Cath Procedure Diagnostic Procedure LHC LHC w/Coronaries w/Grafts PCI Procedure Coronary Stent Coronary Stent Initial x2 Peripheral Cath Diagnostic Procedure Cath Peripheral Lxrzs-Jokbezc-Xsn-Off Procedure Description Procedure Date Procedure Date: 01/24/2018 Procedure Start Time: 10:20 Procedure End Time: 11:00 Procedure Staff Name Function Cristóbal Riley MD Performing Physician Iván Mijares RT Monitor Fernando Hickman RT Scrub Miguel Herrera RN Nurse Procedure Data Cath Procedure Fluoroscopy Diagnostic fluoroscopy Total fluoroscopy Time: 9.7 time: 9.7 min min Diagnostic fluoroscopy Total fluoroscopy dose: 397 dose: 397 mGy mGy Contrast Material Contrast Material Type Amount (ml) Isovue 300 160 Entry Location Entry Primary Successful Side Size Upsize Upsize Entry Closure Succes sful Closure Location (Fr) 1 (Fr) 2 (Fr) Remarks Device Remarks Femoral Right 6 Fr Exoseal artery Short Estimated blood loss: 10 ml Diagnostic catheters Device Type Used For End Catheter Placement MULTIPACK Pigtail 5 Fr Procedure catheter MULTIPACK JL 4.0 5Fr Procedure catheter MULTIPACK 3DRC 5Fr Procedure catheter DIAGNOSTIC AR 2 MOD 5 Fr Procedure catheter ([id number]) MULTIPACK Pigtail 5 Fr Procedure catheter Procedure Complications No complications Procedure Medications Medication Administration Route Dosage Plavix P.O. 75 mg Oxygen etCO2 Nasal cannula 2 l/min Heparin Flush Bag added to field 2 bags (1000units/500ml NS) 0.9% NaCl I.V. 100 ml/hr Fentanyl I.V. 50 mcg Versed I.V. 1 mg Fentanyl I.V. 50 mcg Versed I.V. 1 mg Heparin Bolus I.V. 4000 units Hemodynamics Rest Heart Rate: 76 (bpm) Snapshots Pre Cath Intra NCS Post Cath Vital Signs Time Heart Resp SPO2 etCO2 NIBP (mmHg) Rhythm Pain Sedation Rate (ipm) (%) (mmHg) Status Level (bpm) 9:57:51 76 16 97 0 113/65(84) NSR 0 (11) 10(A) , No pain 10:01:48 79 16 98 29.2 115/68(87) NSR 0 (11) 10(A) , No pain 10:05:44 77 16 98 24 117/72(89) NSR 0 (11) 10(A) , No pain 10:09:42 81 15 96 24.7 118/74(100) NSR 0 (11) 9(A) , No pain 10:13:35 82 16 96 30 110/72(95) NSR 0 (11) 9(A) , No pain 10:17:31 80 17 97 29.2 106/67(88) NSR 0 (11) 9(A) , No pain 10:22:30 77 17 96 29.2 Measuring NSR 0 (11) 9(A) , No pain 10:23:25 77 15 95 24.7 Time NSR 0 (11) 9(A) Exceeded , No pain 10:27:19 77 16 95 22.5 Time NSR 0 (11) 9(A) Exceeded , No pain 10:30:41 77 16 95 25.5 Time NSR 0 (11) 9(A) Exceeded , No pain 10:33:36 78 16 95 30 86/53(65) NSR 0 (11) 9(A) , No pain 10:37:41 79 16 95 30 93/56(71) NSR 0 (11) 9(A) , No pain 10:41:43 81 17 96 29.2 112/72(94) NSR 0 (11) 9(A) , No pain 10:45:49 82 17 96 28.5 122/80(104) NSR 0 (11) 9(A) , No pain 10:49:57 83 18 97 26.2 125/79(101) NSR 0 (11) 9(A) , No pain 10:51:47 83 16 97 27.7 128/79(101) NSR 0 (11) 9(A) , No pain Medications Time Medication Route Dose Verified Delivered Reason Notes Effectiveness by by 10:06:48 Plavix P.O. 75 mg Cristóbal Rivera for Osvaldo Herrera RN antiplatelet therapy 10:06:57 Oxygen etCO2 2 Cristóbal Rivera Per physician Nasal l/min Osvaldo Herrera RN cannula 10:07:05 Heparin Flush added 2 Cristóbal Rivera used for Bag to bags Osvaldo Herrera RN procedure (1000units/500ml field NS) 10:07:13 0.9% NaCl I.V. 100 Cristóbal Rivera Per physician ml/hr Osvaldo Herrera RN 10:07:37 Fentanyl I.V. 50 Cristóbal Sweeneyy for sedation mcg Osvaldo Herrera RN 10:07:45 Versed I.V. 1 mg Cristóbal Sweeneyy for sedation Osvaldo Herrera RN 10:21:08 Fentanyl I.V. 50 Cristóbal Sweeneyy for sedation mcg Osvaldo Herrera RN 10:21:12 Versed I.V. 1 mg Cristóbal Rivera for sedation Osvaldo Herrera RN 10:31:14 Heparin Bolus I.V. 4000 Cristóbal Sweeneyy for units Osvaldo Herrera RN anticoagulation Procedure Log Time Note 9:25:25 Iván Mijares RT(R) sent for patient. Start room use. 9:39:43 Informed consent obtained and on chart 9:39:47 Diagnostic Cath Status : Elective 9:41:35 Time tracking: Regular hours (M-F 7:00 - 5:00) 9:41:41 Plan of Care:Hemodynamics will remain stable., Cardiac rhythm will remain stable., Comfort level will be maintained., Respiratory function will remain adequate., Patient/ family verbilizes understanding of procedure., Procedure tolerated without complication., Recovers from procedure without complications.. 9:50:57 Patient received from Pre/Post Procedure Room to CCL 3 Alert and oriented. Tansferred to table in Supine position. 9:56:59 Warm blankets applied, and tristin hugger turned on for patient comfort. 9:56:59 Correct patient and procedure confirmed by team. 9:57:00 ECG and BP/O2 sat monitors applied to patient. 9:57:00 Vital chart was started 9:57:18 Baseline sample Acquired. 10:03:28 Rhythm: sinus rhythm 10:03:31 Full Disclosure recording started 10:03:42 H&P Date Dictated: 01/17/2018 Within 30 days and on chart., H&P Addendum completed by physician on day of procedure. (MUST COMPLETE FOR ALL OUTPATIENTS). 10:03:42 Pre-procedure instructions explained to patient. 10:03:43 Pre-op teaching completed and patient verbalized understanding. 10:03:45 Family in waiting room. 10:03:47 Patient NPO since Midnight. 10:03:48 Is the patient allergic to Iodine/contrast media? No. 10:03:50 Is patient on blood thinner?Yes 10:03:52 ACC The patient was administered the following blood thiners within the last 24 hours: ACCPlavix 10:03:53 Patient diabetic? No. 10:03:55 Previous problem with sedation/anesthesia? No ? 10:03:56 Snore? No 10:03:57 Sleep apnea? No 10:03:58 Deviated septum? No 10:03:59 Opens mouth fully? Yes 10:04:00 Sticks out tongue? Yes 10:04:01 Airway obstruction? No ? 10:04:03 Dentures? No ? 10:04:06 Pre procedure: right dorsailis pedis pulse 1+ Palpable, but thready & weak; easily obliterated 10:04:08 Patient pain scale 0/10 ?. 10:04:11 IV patent on arrival in left forearm with 0.9% NaCl at [facility]. 10:04:13 Lab results completed and on chart. 10:04:16 Right groin area was prepped with chlora-prep and draped in sterile fashion 10:04:17 Alarms reviewed by R. N. 10:04:17 Sharps counted by scrub and verified by R.N. 10:06:48 Plavix 75 mg P.O. was administered by Miguel Herrera RN; for antiplatelet therapy; 10:06:57 Oxygen 2 l/min etCO2 Nasal cannula was administered by Miguel Herrera RN; Per physician; 10:07:05 Heparin Flush Bag (1000units/500ml NS) 2 bags added to field was administered by Miguel Herrera RN; used for procedure; 10:07:13 0.9% NaCl 100 ml/hr I.V. was administered by Miguel Herrera RN; Per physician; 10:07:16 --------ALL STOP TIME OUT------ 10:07:17 Final Timeout: patient, procedure, and site verified with staff and physician. All members of the team are in agreement. 10:07:19 Right groin site verified by team. 10:07:22 Physical assessment completed. ASA score P 2 - A patient with mild systemic disease as per Cristóbal Riley MD. 10:07:25 Sedation plan: IV Moderate Sedation Medication:Versed, Fentanyl 10:07:37 Fentanyl 50 mcg I.V. was administered by Miguel Herrera RN; for sedation; 10:07:45 Versed 1 mg I.V. was administered by Miguel Herrera RN; for sedation; 10:08:51 Use device set Femoral Dx 10:08:54 PERCUTANEOUS ENTRY 19GA needle opened to sterile field. 10:08:55 Tegaderm 4 x 4 (1626W) opened to sterile field. 10:08:55 ACIST Manifold (10758) opened to sterile field. 10:08:56 ACIST Hand Control (01475) opened to sterile field. 10:08:57 ACIST Syringe (18234) opened to sterile field. 10:08:58 Bag Decanter () opened to sterile field. 10:08:58 Medline Cath Pack ([id number]) opened to sterile field. 10:08:59 DIAGNOSTIC WIRE .035 260cm J wire (263954) opened to sterile field. 10:09:14 DIAGNOSTIC Multipack 5Fr catheter set (HU6430) opened to sterile field. 10:09:42 SHEATH 6Fr Prelude ([id number]) opened to sterile field. 10:20:34 Procedure started. 10:20:48 Local anesthetic to right femoral artery with Lidocaine 2% by Cristóbal Riley MD.INITIAL ACCESS ONLY 10:20:59 A 6 Fr Short sheath was inserted into the Right Femoral artery 10:21:08 Fentanyl 50 mcg I.V. was administered by Miguel Herrera RN; for sedation; 10:21:12 Versed 1 mg I.V. was administered by Miguel Herrera RN; for sedation; 10::25 A MULTIPACK Pigtail 5 Fr catheter was advanced over the wire and used for Procedure. 10:21:37 LV angiography performed. 10:21:38 LV gram done using RUBIO 10:21:52 EF : 55 % 10::56 Injector settings: Ml/sec: 7, Volume: 15, 10:22:00 Catheter removed. 10:22:05 A MULTIPACK JL 4.0 5Fr catheter was advanced over the wire and used for Procedure. 10:23:23 LCA angiography performed. 10:23:31 Catheter removed. 10:23:36 A MULTIPACK 3DRC 5Fr catheter was advanced over the wire and used for Procedure. 10:23:44 Use device set [facility] PCI 10:23:56 GUIDE 6FR XBLAD 3.5 SH catheter ([id number]) opened to sterile field. 10:24:07 INFLATOR Merit BasixCompak (OG6354) opened to sterile field. 10:24:29 PIERRE to LAD angiography performed. 10:25:27 Catheter exchanged over wire. 10:25:34 A DIAGNOSTIC AR 2 MOD 5 Fr catheter ([id number]) was advanced over the wire and used for Procedure. 10:26:14 Zero performed for pressure channel P1 10:26:17 Zero performed for pressure channel P1 10:26:52 RCA occluded. 10:26:59 SVG to RCA angiography performed. 10:27:02 Catheter exchanged over wire. 10:27:58 6 Fr XBLAD 3.5 SH guide catheter was inserted over the wire 10:30:29 WHISPER 300cm guide wire ([id number]) opened to sterile field. 10:31:14 Heparin Bolus 4000 units I.V. was administered by Miguel Herrera RN; for anticoagulation; 10:31:37 Whisper wire advanced. 10:31:51 Wire advanced across lesion. 10:33:24 Inflate balloon Inflation number: 1 A EUPHORA 3.5 x 15 Balloon ([id number]) was prepped and advanced across the Prox LAD, then inflated to 17 OSMAR for 0:10 (min:sec). 10:33:42 Inflation number: 1 The EUPHORA 3.5 x 15 Balloon ([id number]) was reinflated across the LMCA, to 17 OSMAR for 0:10 (min:sec). 10:35:18 Balloon removed over the wire. 10:37:07 Place stent Inflation Number: 2 A PROMUS Premier 3.5 x 20 stent ([id number]) was prepped and advanced across the Prox LAD. The stent was deployed at 17 OSMAR for 0:10 (min:sec). 10:39:11 Inflation number: 2 The stent balloon was then re-inflated across the LMCA to 21 OSMAR for 0:10 (min:sec). 10:39:40 Stent catheter was removed intact over wire. 10:40:40 Place stent Inflation Number: 3 A PROMUS Premier 3.5 x 16 stent ([id number]) was prepped and advanced across the LMCA. The stent was deployed at 21 OSMAR for 0:10 (min:sec). 10:42:06 Stent catheter was removed intact over wire. 10:43:26 Inflation number: 1 The EUPHORA 3.5 x 15 Balloon ([id number]) was reinflated across the Mid LAD, to 11 OSMAR for 0:10 (min:sec). 10:43:37 EXOSEAL 6Fr (EX600) opened to sterile field. 10:43:40 Balloon removed over the wire. 10:43:41 Wire removed. 10:43:41 Guide catheter removed. 10:46:55 A MULTIPACK Pigtail 5 Fr catheter was advanced over the wire and used for Procedure. 10:48:05 Abdominal Aortagram was performed. 10:48:07 Left leg runoff performed. 10:48:08 Right leg runoff performed. 10:48:51 Injector settings: Ml/sec: 10, Volume: 20, 10:49:05 Catheter removed. 10:49:17 Sheath removed intact; hemostasis achieved with Exoseal to the Right Femoral artery. 10:49:22 Procedure ended.(Physican Out) 10:50:44 Fluoroscopy time 09.70 minutes. 10:50:51 Flurop Dose total: 397 10:50:51 Fluoroscopy dose: 397 mGy 10:50:54 Contrast amount:Isovue 300 160ml. 10:50:56 Sharps counted by scrub and verified by R.N. 10:51:19 Insertion/operative site no bleeding no hematoma. 10:51:22 Post-op/insertion site Right Femoral artery dressed using a 4 x 4 and Tegaderm. 10:51:24 Post Procedure Pulses reassessed and unchanged 10:51:26 Post-procedure physical assessment completed. ASA score P 2 - A patient with mild systemic disease as per Cristóbal Riley MD. 10:51:29 Post procedure rhythm: unchanged. 10:51:32 Estimated blood loss: 10 ml 10:51:33 Post procedure instruction explained to patient.Patient verbalizes understanding. 10:51:34 Patient needs reinforcement of post procedure teaching. 10:52:45 Procedure type changed to Cath procedure, Diagnostic procedure, LHC, LHC w/Coronaries w/Grafts, PCI procedure, Coronary Stent, Coronary Stent Initial x2, Peripheral Cath Diagnostic Procedure, Cath Peripheral, Wchgo-Ujxuink-Dwc-Off 10:52:46 Procedure and supply charges have been captured, reviewed, submitted and are correct. 10:52:49 Procedure Complication : No complications 10:53:15 Vital chart was stopped 10:53:17 See physician's report for complete and final results. 10:59:51 FEMSTOP Gold ([id number]) opened to sterile field. 11:00:36 Pt began to ooze. Femstop applied with light pressure. 11:00:40 Report given to Pre/Post Procedure Room. 11:00:42 Patient transfered to Pre/Post Procedure Room with Stretcher. 11:00:44 Procedure ended. 11:00:44 Full Disclosure recording stopped 11:01:13 End room use (Document Last) Intervention Summary Intervention Notes Time ActionType Lesion and Equipment Action# Pressure Duration Attributes Used 10:33:24 Inflate Prox LAD EUPHORA 3.5 1 17 00:10 balloon x 15 Balloon ([id number]) 10:33:42 Reinflate LMCA EUPHORA 3.5 1 17 00:10 balloon x 15 Balloon ([id number]) 10:37:07 Place stent Prox LAD PROMUS 2 17 00:10 Premier 3.5 x 20 stent ([id number]) 10:39:11 Reinflate LMCA PROMUS 2 21 00:10 stent Premier 3.5 balloon x 20 stent ([id number]) 10:40:40 Place stent LMCA PROMUS 3 21 00:10 Premier 3.5 x 16 stent ([id number]) 10:43:26 Reinflate Mid LAD EUPHORA 3.5 1 11 00:10 balloon x 15 Balloon ([id number]) Device Usage Item Name Manufacture Quantity Catalog Number Hospital Part Current Min imal Lot# / Charge Number Stock Stock Serial# Code PERCUTANEOUS Cook Medical 1 [id number] 184600 5 ENTRY 19GA needle Tegaderm 4 x 3M 1 1626W 302488 005119 [id number] 5 4 (1626W) ACIST Acist 1 55507 361095 106882 707786 5 Manifold Medical (25803) Systems Inc ACIST Hand Acist 1 18582 331878 591269 424120 5 Control Medical (03234) Systems Inc ACIST Acist 1 73944 257458 223380 513194 20 Syringe Medical (39389) Systems Inc Bag Decanter Microtek 1 2001S 747953 67635 986277 5 (2001S) Medical Inc. Medline Cath Cardinal 1 [id number] 917026 92892 569117 5 Pack Health ([id number]) DIAGNOSTIC [facility] 1 233318 234041 399816 339786 30 WIRE .035 260cm J wire (764949) DIAGNOSTIC Cardinal 1 DL8994 653112 71292 510154 30 Multipack Health 5Fr catheter set (OD1402) SHEATH 6Fr Merit 1 [id number] 404657 680596 299080 5 Prelude Medical ([id number]) MULTIPACK Cardinal 1 980073 5 Pigtail 5 Fr Health catheter MULTIPACK JL Cardinal 1 056414 5 4.0 5Fr Health catheter MULTIPACK Cardinal 1 343115 5 3DRC 5Fr Health catheter GUIDE 6FR Cardinal 1 [id number] 027966 344718 918386 3 XBLAD 3.5 SH Health catheter ([id number]) INFLATOR Merit 1 CV4094 003501 151554 327725 15 [facility] Medical BasixCompak (TW6935) DIAGNOSTIC Cardinal 1 [id number] 497647 771131 609322 20 AR 2 MOD 5 Health Fr catheter (306750T) WHISPER Arias 1 [id number] 151940 784211 411421 5 300cm guide Vascular wire ([id number]) EUPHORA 3.5 Medtronic 1 [id number] 560061 198652 335715 5 [id number] x 15 Balloon ([id number]) PROMUS [place] 1 [id number] 327261 257253 5 [id number] Premier 3.5 Scientific x 20 stent ([id number]) PROMUS [place] 1 [id number] 262041 160218 5 [id number] Premier 3.5 Scientific x 16 stent ([id number]) EXOSEAL 6Fr Cardinal 1 EX600 436416 989613 761794 10 (EX600) [facility] 1 [id number] 667302 945114 566935 5 ([id number]) Signature Audit [place] Stage Time Signature Unsigned Intra-Procedure 01/24/2018 Iván Mijares 11:01:57 AM RT(R) Signatures Monitor : Iván Mijares RT Signature : Date : Time : [place] [id number] [place] [address]
[~2018-01-24 07:51] MED LIST changes: +LEVAQUIN500 MG PO; +PREDNISONE10 MG PO
[2018-01-24 08:09] VITALS: BP 122/68; Ht 177.8 cm; Wt 73.2 kg
[2018-01-24 08:26] LABS: BASOPHILS 0.2 % (0-2); EOSINOPHILS 2.8 % (0-7); HEMATOCRIT 40.8 % (42.0-54.0); HEMOGLOBIN 13.8 g/dL (13.5-17.5); IMMATURE GRANULOCYTES 0.2 % (0-5); LYMPHOCYTES 27.9 % (15-50); MCHC 33.8 g/dL (31.0-37.0); MCV 97.6 fL (80.0-100.0); MEAN PLATELET VOLUME 9.4 fL (7.4-10.4); MONOCYTES 10.3 % (2-11); NEUTROPHILS 58.6 % (40-80); PLATELET COUNT 169 10x3/uL (130-400); RBC 4.18 10x6/uL (4.20-6.10); RDW 13.6 % (11.5-14.5); WBC 8.2 10x3/uL (4.8-10.8)
[2018-01-24 08:30] LABS: CALC OSMOLALITY 275 mosm/kg (275-300); CALCIUM 8.2 mg/dL (8.5-10.1); CARBON DIOXIDE 24.3 mmol/L (21.0-32.0); CHLORIDE - SERUM 104 mmol/L (98-107); GLUCOSE 80 mg/dL (74-106); SODIUM 139 mmol/L (136-145); UREA NITROGEN 11 mg/dL (7-18); eGFR NON AFRICAN AMERICAN 79 mL/min (90-120)
== END 2018-01-24 15:00 | disposition home or self-care (01) ==
LOC: D.CATH 07:51
PROVIDERS: Internal Medicine Interventional Cardiology
DX: I25.119 Atherosclerotic heart disease of native coronary artery with unspecified angina pectoris (principal); I70.219 Atherosclerosis of native arteries of extremities with intermittent claudication, unspecified extremity; I10 Essential (primary) hypertension; Z01.812 Encounter for preprocedural laboratory examination
CPT/HCPCS: 93459; C9600 ×2

== ENCOUNTER → 2018-11-10 09:39 | Outpatient (CLI) | payer MEDICARE ==
[2018-01-24 08:09] VITALS: BMI 23.1
== END | disposition home or self-care (01) ==
LOC: D.MRI 09:39
DX: M54.2 Cervicalgia (principal)